=== PATIENT | male | born 2000 | race Hispanic/Latino ===

== ENCOUNTER 2023-05-23 22:06 | Emergency (ER) | payer OTHER, MEDICAID, SELFPAY ==
[2023-05-23 22:30] VITALS: BP 140/80; PULSE 81; RESP 20; TEMP 36.9; O2SAT 100; BMI 36.0
--- NOTE | 2023-05-23 22:35 | DI.RAD.S_ITS ---
PROCEDURE: XR ANKLE LT MIN 3V INDICATIONS: Ankle injury TECHNIQUE: 3 views of the ankle were acquired. COMPARISON: None. FINDINGS: Bones: No fractures or dislocations. Ankle mortise is normally aligned. No suspicious bony lesions. The talar dome demonstrates no gregory abnormality. Soft tissues: Soft tissue swelling is seen laterally. IMPRESSION: Soft tissue swelling is seen, without an acute bony abnormality seen by plain film. If there is point tenderness (or other clinical suspicion for a fracture not seen on these images) then a dedicated CT or a short-term followup plain film series could be considered for further evaluation, as clinically appropriate. Dictated by: Jacob Peterson M.D. on 05/23/2023 at 22:32 Approved by: Jacob Peterson M.D. on 05/23/2023 at 22:32
--- NOTE | 2023-05-24 02:03 | ED_ITS ---
HPI - Extremity Injury (Lower) General Chief Complaint: Extremity Injury, Lower Stated Complaint: Ankle inj Time Seen by Provider: 05/24/23 01:24 Source: patient Mode of arrival: Ambulatory History of Present Illness HPI Narrative: Patient is a healthy 22-year-old male who presents with left ankle pain. He says he misstepped earlier this afternoon he had and stent swelling he was able to ambulate now no longer able to. The crutches at home which he has been using. No other injury knee is within normal limits. Related Data Allergies Allergy/AdvReac Type Severity Reaction Status Date / Time No Known Drug Allergies Allergy Verified 05/23/23 22:34 Review of Systems Review of Systems ROS Unobtainable: All systems reviewed & are unremarkable except as noted in HPI and below Patient History Social History Smoking Status: Never smoker Smoking Status: Never smoker alcohol intake frequency: 0-2 drinks per day Substance Use Type: does not use Exam Initial Vital Signs Initial Vital Signs: Vital Signs Temperature 98.4 F 05/23/23 22:30 Pulse Rate 81 05/23/23 22:30 Respiratory Rate 20 05/23/23 22:30 Blood Pressure 140/80 05/23/23 22:30 Pulse Oximetry 100 05/23/23 22:30 Oxygen Delivery Method Room Air 05/23/23 22:30 GENERAL: Well-appearing, well-nourished and in no acute distress. CARDIOVASCULAR: peripheral pulses in tact, cap refill <2 sec RESPIRATORY: No respiratory distress, speaks in full sentences without difficulty EXTREMITIES: Normal range of motion, no clubbing or edema. Neurovascularly intact Left ankle significant lateral malleoli swelling distal pedal pulse intact Achilles intact knee is stable NEUROLOGICAL: Cranial nerves II through XII grossly intact. Normal gait and speech. SKIN: Warm, dry, no petechiae, no rashes or lesions. Course Orders Ordered: ED Orders 05/23/23 22:35 XR ankle LT min 3V Stat Vital Signs Vital signs: Vital Signs - 8 hr 05/23/23 22:30 05/24/23 02:08 Temperature 98.4 F Pulse Rate 81 67 Respiratory Rate 20 20 Blood Pressure 140/80 134/70 Pulse Oximetry 100 100 Oxygen Delivery Method Room Air Room Air MDM - Extremity Injury (Lower) Imaging Data Extremity x-ray #1: Radiologist's Impression: PROCEDURE:? XR ANKLE LT MIN 3V ? INDICATIONS:? Ankle injury ? TECHNIQUE:? 3 views of the ankle were acquired.? ? COMPARISON:? None. ? FINDINGS:? ? Bones:? No fractures or dislocations.? Ankle mortise is normally aligned.? No s uspicious bony lesions.? The talar dome demonstrates no gregory abnormality.? ? Soft tissues:? Soft tissue swelling is seen laterally. ? ? IMPRESSION:? Soft tissue swelling is seen, without an acute bony abnormality seen by plain film. ? If there is point tenderness (or other clinical suspicion for a fracture not seen on these images) then a dedicated CT or a short-term followup plain film series co uld be considered for further evaluation, as clinically appropriate. ? Dictated by: Jacob Peterson M.D. on 05/23/2023 at 22:32 ? ? Approved by: Jacob Peterson M.D. on 05/23/2023 at 22:32? MDM Narrative Medical decision making narrative: Patient is a healthy 22-year-old male who presents with left ankle injury after rolling it. X-rays negative for fracture consistent with ankle sprain. He already has crutches. Supportive care only. No further workup. Discharge Plan Departure Patient Disposition: Home Clinical Impression: Ankle sprain and strain Instructions: Ankle Sprain Activity Restrictions/Additional Instructions: *You have been diagnosed with left ankle sprain *What to do: Increase activity as tolerated use crutches as needed. Elevate. Ice 20-30 minutes at a time. This can take a few weeks to heal. If still having pain he may require outpatient MRI *Continue to take medications as directed *Follow up with your primary care provider in 2-3 days or call [phone] *Return to ER if you should have increasing pain swelling or any new, worsening or concerning symptoms Stand Alone Forms: Patient Portal/API
[2023-05-24 02:08] VITALS: BP 134/70; PULSE 67; RESP 20; O2SAT 100
== END 2023-05-24 02:18 | disposition home or self-care (01) ==
PROVIDERS: Emergency Provider Emergency Medicine
DX: S93.402A Sprain of unspecified ligament of left ankle, initial encounter (principal); S96.912A Strain of unspecified muscle and tendon at ankle and foot level, left foot, initial encounter; X50.1XXA Overexertion from prolonged static or awkward postures, initial encounter
CPT/HCPCS: 73610; 99281; 99283